=== PATIENT | male | born 1950 | race Caucasian/White ===

== ENCOUNTER 2017-03-30 02:09 | Inpatient (IN) ==
[2017-03-30 02:38] LABS: Basophils # 0.1 K/mcL (0.0-0.2); Basophils % 0.4 %; Eosinophils % 0.1 %; Hemoglobin 21.4 g/dL (12.9-16.9); Immature Granulocytes % 1.3 % (0-4); Lymphocytes # 0.8 K/mcL (0.6-4.6); Lymphocytes % 5.2 %; Mean Corpuscular HGB Conc 34.1 g/dL (31.6-35.5); Mean Corpuscular Hemoglobin 31.2 pg (28.0-33.3); Mean Corpuscular Volume 91.7 fL (83.0-100.0); Monocytes # 1.2 K/mcL (0.0-1.3); Monocytes % 7.6 %; Neutrophils # 13.8 K/mcL (1.6-8.9); Platelet Count 170 K/mcL (140-400); Red Blood Count 6.85 M/mcL (4.19-5.50); Segmented Neutrophils % 85.4 %
[2017-03-30 02:39] LABS: Hematocrit 62.8 % (37.5-50.1)
[2017-03-30 03:01] LABS: Calcium 9.1 mg/dL (8.6-10.3); Potassium 4.2 mEq/L (3.5-5.1)
[2017-03-30] MEDS ORDERED: 0.9 % Sodium Chloride 1,000 ML IVC ONE ×2 (03:03→05:07)
[2017-03-30 03:44] LABS: Prothrombin Time 11.2 Seconds (9.4-12.1)
[2017-03-30 03:47] LABS: Activated Partial Thrombo Time 22.7 Seconds (26.0-36.0)
[2017-03-30 04:38] LABS: Bilirubin,Urine Negative (Negative); Blood,Urine Negative (Negative); Clarity,Urine Clear (Clear); Color,Urine Yellow (Yellow); Glucose,Urine (UA) Normal (Normal); Ketones,Urine Negative (Negative); Leukocyte Esterase,Urine Negative (Negative); Nitrite,Urine Negative (Negative); Protein,Urine 30 mg/dL (Neg-Trace); Specific Gravity,Urine > 1.030 (1.010-1.025); Urobilinogen,Urine Normal (Normal)
[2017-03-30 04:41] LABS: RBC,Urine 0-3 per hpf (0-3); Squamous Epithelial Cell,Urine Many per lpf (None-Few); WBC,Urine 0-3 per hpf (0-3)
[2017-03-30 04:59] LABS: Bacteria,Urine Few per hpf (None-Few); Hyaline Casts,Urine Few per lpf (None-Few)
[2017-03-30] MEDS ORDERED: MetroNIDAZOLE 500 MG/100 ML 500 MG/100 ML BAG IVPB ONE (05:07)
--- NOTE | 2017-03-30 05:16 | Emergency Department Note ---
Disposition Clinical Impression: Colitis, Dehydration, Elevated troponin, Elevated lactic acid level Disposition: Admitted As Inpatient General Adult HPI - General Chief complaint: ED General Medical Stated complaint: Sweating Time Seen by Provider: 03/30/17 02:19 Source: patient, EMS Limitations: no limitations Nursing Notes Reviewed: Yes Vital Signs Reviewed: Yes - History of Present Illness HPI Narrative: Patient presents to the emergency department for evaluation of decreased mental status, back pain, diaphoresis. Patient brought in by EMS and is only able to give limited history secondary to slow speech and confusion. Complains of diaphoresis and had soaked through his shirt. Complains of low back pain. At this point in the setting of back pain abdominal discomfort diaphoresis and confusion the patient will undergo CTA evaluation for possible dissection. Patient will be taken to CT prior to having his kidney function back. Patient will also undergo evaluation for possible cardiac as well as abdominal causes of symptoms. Patient will receive a head CT secondary to confusion. Awaiting family. Pain Scale: 6 - Related Data Home Medications Medication Instructions Recorded Confirmed Aspirin Enteric Coated [Aspirin EC] 81 mg PO QPM 11/21/14 03/30/17 Levothyroxine [Synthroid] 50 mcg PO QAM 11/21/14 03/30/17 Metoprolol XL (24 HR) Succ [Toprol 50 mg PO QAM 11/21/14 03/30/17 XL] Oxycodone HCl/Acetaminophen 1 tab PO Q6H PRN 11/21/14 03/30/17 [Percocet 7.5-325 mg Tablet] Atorvastatin Calcium [Lipitor] 20 mg PO DAILY 03/30/17 03/30/17 Duloxetine HCl [Cymbalta] 60 mg PO DAILY 03/30/17 03/30/17 Losartan Potassium [Cozaar] 100 mg PO DAILY 03/30/17 03/30/17 amLODIPine [Norvasc] 5 mg PO DAILY 03/30/17 03/30/17 Allergies Allergy/AdvReac Type Severity Reaction Status Date / Time No Known Allergies Allergy Verified 03/30/17 02:14 All systems ED: reviewed and negative except as stated. Constitutional: Reports: other (Diaphoresis) Gastrointestinal: Reports: abdominal pain Musculoskeletal: Reports: back pain Integumentary: Denies: rash, abrasion Past Medical History - Past Medical History Medical history: Reports: arthritis, hyperlipidemia, hypertension, renal disease , thyroid disease Surgical history: Reports: cataract, orthopedic, other, vasectomy Psychiatric history: Reports: no psych history - Social History Smoking Status: Former smoker Smokeless Tobacco Status: No Alcohol use: Reports: none Drug use: Reports: none Physical Exam General: Well appearing, nontoxic, no acute distress Head: Normocephalic Atraumatic Eyes: PERRL, EOMI ENT: Airway patent, no stridor Neck: supple, no meningismus Chest: Lungs clear to auscultation bilateral Cardiac: Regular rate and rhythm, no murmurs, rubs or gallops Abdomen: soft, nontender, nondistended; no guarding, rebound, or tenderness to percussion Musculoskeletal: Calves symmetric, nontender, no palpable cord Skin: No rash, normal skin tone Neuro: Alert and Oriented to person, No focal deficit, CN 2-12 symmetric and intact; finger-nose and [id number] intact bilaterally. Upper and lower extremity strength and sensation intact. - General Limitations: no limitations General appearance: alert Course - Reevaluation(s) Reevaluation #1: CT scan concerning for colitis area this fits dehydration. Upon further evaluation with family at bedside the patient symptoms started with vomiting and diarrhea earlier today. Patient's confusion worsened throughout the day. His confusion that concerned them to bring him in. states that he has had episodes of confusion diaphoresis and low blood pressure in the past that have required admission as well as transfer to [facility] and have not found a specific cause. This does sound more similar to the nonspecific symptoms we have found today. Patient will be admitted for further evaluation and treated for possible colitis. - Consultations Consultation #1: Discussed with Dr. Chen. Patient accepted for admission. Vital Signs Temperature 98.6 F 03/30/17 02:17 Pulse Rate 78 03/30/17 02:17 Respiratory Rate 16 03/30/17 02:17 Blood Pressure 135/87 03/30/17 02:17 O2 Sat by Pulse Oximetry 93 03/30/17 02:17 Temperature 97.8 F 03/30/17 19:09 Pulse Rate 116 03/30/17 19:09 Respiratory Rate 20 03/30/17 19:09 Blood Pressure 72/52 03/30/17 19:09 O2 Sat by Pulse Oximetry 95 03/30/17 19:09 Oxygen Delivery Oxygen Delivery Nasal Cannula Medical Decision Making - Lab Data Result diagrams: 03/30/17 21:14 03/30/17 08:23 Lab Results 03/30/17 03/30/17 03/30/17 Range/Units 02:29 02:31 02:31 WBC 16.1 H (4.3-11.1) K/mcL RBC 6.85 H (4.19-5.50) M/mcL Hgb 21.4 H (12.9-16.9) g/dL Hct 62.8 H (37.5-50.1) % MCV 91.7 (83.0-100.0) fL MCH 31.2 (28.0-33.3) pg MCHC 34.1 (31.6-35.5) g/dL RDW 15.0 H (11.5-14.5) % Plt Count 170 (140-400) K/mcL MPV 10.0 (9.4-12.4) fL Immature Gran % 1.3 (0-4) % Seg Neutrophils % 85.4 % Lymphocytes % 5.2 % Monocytes % 7.6 % Eosinophils % 0.1 % Basophils % 0.4 % Neutrophils # 13.8 H (1.6-8.9) K/mcL Lymphocytes # 0.8 (0.6-4.6) K/mcL Monocytes # 1.2 (0.0-1.3) K/mcL Eosinophils # 0.0 (0.0-0.6) K/mcL Basophils # 0.1 (0.0-0.2) K/mcL PT (9.4-12.1) Seconds INR APTT (26.0-36.0) Seconds Sodium 133 L (136-145) mEq/L Potassium 4.2 (3.5-5.1) mEq/L Chloride 100 (98-107) mEq/L Carbon Dioxide 24 (23-29) mEq/L BUN 44 H (8-23) mg/dL Creatinine 1.79 H (0.70-1.30) mg/dL Est GFR ( Amer) 46 L (> 60) Est GFR (Non-Af Amer) 38 L (> 60) BUN/Creatinine Ratio 25 (6-26) Glucose 186 H (70-105) mg/dL POC Glucose 169 H (58-89) Calculated Osmolality 292 (280-300) Lactic Acid (0.5-2.2) mmol/L Calcium 9.1 (8.6-10.3) mg/dL Troponin I (< 0.04) ng/mL Urine Color (Yellow) Urine Clarity (Clear) Urine pH (5.0-8.0) pH Units Ur Specific Carter (1.010-1.025) Urine Protein (Neg-Trace) mg/dL Urine Glucose (UA) (Normal) mg/dL Urine Ketones (Negative) mg/dL Urine Blood (Negative) Urine Nitrite (Negative) Urine Bilirubin (Negative) Urine Urobilinogen (Normal) mg/dL Ur Leukocyte Esterase (Negative) Urine Microscopic RBC (0-3) per hpf Urine Microscopic WBC (0-3) per hpf Ur Squamous Epith Cells (None-Few) per lpf Urine Bacteria (None-Few) per hpf Hyaline Casts (None-Few) per lpf Ur Culture Indicated? (NO) 03/30/17 03/30/17 03/30/17 Range/Units 02:31 03:12 03:12 WBC (4.3-11.1) K/mcL RBC (4.19-5.50) M/mcL Hgb (12.9-16.9) g/dL Hct (37.5-50.1) % MCV (83.0-100.0) fL MCH (28.0-33.3) pg MCHC (31.6-35.5) g/dL RDW (11.5-14.5) % Plt Count (140-400) K/mcL MPV (9.4-12.4) fL Immature Gran % (0-4) % Seg Neutrophils % % Lymphocytes % % Monocytes % % Eosinophils % % Basophils % % Neutrophils # (1.6-8.9) K/mcL Lymphocytes # (0.6-4.6) K/mcL Monocytes # (0.0-1.3) K/mcL Eosinophils # (0.0-0.6) K/mcL Basophils # (0.0-0.2) K/mcL PT 11.2 (9.4-12.1) Seconds INR 1.0 APTT 22.7 L (26.0-36.0) Seconds Sodium (136-145) mEq/L Potassium (3.5-5.1) mEq/L Chloride (98-107) mEq/L Carbon Dioxide (23-29) mEq/L BUN (8-23) mg/dL Creatinine (0.70-1.30) mg/dL Est GFR ( Amer) (> 60) Est GFR (Non-Af Amer) (> 60) BUN/Creatinine Ratio (6-26) Glucose (70-105) mg/dL POC Glucose (58-89) Calculated Osmolality (280-300) Lactic Acid 2.5 H (0.5-2.2) mmol/L Calcium (8.6-10.3) mg/dL Troponin I 0.07 H* (< 0.04) ng/mL Urine Color (Yellow) Urine Clarity (Clear) Urine pH (5.0-8.0) pH Units Ur Specific Carter (1.010-1.025) Urine Protein (Neg-Trace) mg/dL Urine Glucose (UA) (Normal) mg/dL Urine Ketones (Negative) mg/dL Urine Blood (Negative) Urine Nitrite (Negative) Urine Bilirubin (Negative) Urine Urobilinogen (Normal) mg/dL Ur Leukocyte Esterase (Negative) Urine Microscopic RBC (0-3) per hpf Urine Microscopic WBC (0-3) per hpf Ur Squamous Epith Cells (None-Few) per lpf Urine Bacteria (None-Few) per hpf Hyaline Casts (None-Few) per lpf Ur Culture Indicated? (NO) 03/30/17 Range/Units 04:15 WBC (4.3-11.1) K/mcL RBC (4.19-5.50) M/mcL Hgb (12.9-16.9) g/dL Hct (37.5-50.1) % MCV (83.0-100.0) fL MCH (28.0-33.3) pg MCHC (31.6-35.5) g/dL RDW (11.5-14.5) % Plt Count (140-400) K/mcL MPV (9.4-12.4) fL Immature Gran % (0-4) % Seg Neutrophils % % Lymphocytes % % Monocytes % % Eosinophils % % Basophils % % Neutrophils # (1.6-8.9) K/mcL Lymphocytes # (0.6-4.6) K/mcL Monocytes # (0.0-1.3) K/mcL Eosinophils # (0.0-0.6) K/mcL Basophils # (0.0-0.2) K/mcL PT (9.4-12.1) Seconds INR APTT (26.0-36.0) Seconds Sodium (136-145) mEq/L Potassium (3.5-5.1) mEq/L Chloride (98-107) mEq/L Carbon Dioxide (23-29) mEq/L BUN (8-23) mg/dL Creatinine (0.70-1.30) mg/dL Est GFR ( Amer) (> 60) Est GFR (Non-Af Amer) (> 60) BUN/Creatinine Ratio (6-26) Glucose (70-105) mg/dL POC Glucose (58-89) Calculated Osmolality (280-300) Lactic Acid (0.5-2.2) mmol/L Calcium (8.6-10.3) mg/dL Troponin I (< 0.04) ng/mL Urine Color Yellow (Yellow) Urine Clarity Clear (Clear) Urine pH 6.0 (5.0-8.0) pH Units Ur Specific Carter > 1.030 H (1.010-1.025) Urine Protein 30 H (Neg-Trace) mg/dL Urine Glucose (UA) Normal (Normal) mg/dL Urine Ketones Negative (Negative) mg/dL Urine Blood Negative (Negative) Urine Nitrite Negative (Negative) Urine Bilirubin Negative (Negative) Urine Urobilinogen Normal (Normal) mg/dL Ur Leukocyte Esterase Negative (Negative) Urine Microscopic RBC 0-3 (0-3) per hpf Urine Microscopic WBC 0-3 (0-3) per hpf Ur Squamous Epith Cells Many H (None-Few) per lpf Urine Bacteria Few (None-Few) per hpf Hyaline Casts Few (None-Few) per lpf Ur Culture Indicated? NO (NO) Attestation Statement - Attestation Attestation: I examined this patient and my medical decision-making was reviewed with the Resident Physician, Dr. Plasencia. I agree with the documented findings, disposition and treatment plan as described except to the extent set forth below. Pt is a 67 yo wm, brought to us with AMS, and c/o low back pain and diaphoresis. Pt arrived y EMS, no family for additional hx on arrival. Pt awake and able to answer questions, just very delayed with his responses and appears uncomfortable. Limited history on arrival. VSS. Concerned on arrival considering pt's acute sxs, for possible vascular event. Accucheck wnl. Pt with PIV est, labs sent, and sent for urgent CTA aorta and CT brain imaging. I agree with pt's PE findings as documented. VSS. EKG NSR with no acute ischemia. Labs show acute on chronic KI, elev trop (possible due to renal issues), and elev lactate. Pt with no acute vascular issue on cT scanning, CT abd/pelvis shows colitis. arrived later in ED course, and reports that pt has been ill with N/.V/D, and developed grad worsening dehydration and confusion. states pt with similar presentation in the past related to dehydration. Will continue IV fluid hydration, repeat lactate, IV antibx for colitis and admission. CT brain wnl. No focal deficits,a nd slow improvement clincially after IV hydration. D/W hsopitalist.
[2017-03-30] MEDS ORDERED: *HR* HYDROmorphone (PF) 1 MG/ML SYRINGE IVP ONE (05:38)
[2017-03-30] MEDS ORDERED: Ondansetron 4 MG/2 ML VIAL IVP ONE (05:38)
[2017-03-30] MEDS ORDERED: Acetaminophen 325 MG TABLET PO PRN (07:44)
[2017-03-30] MEDS ORDERED: Naloxone 0.4 MG/ML INJ IVP PRN (07:44)
[2017-03-30] MEDS ORDERED: *HR* Morphine 2 MG/ML SYRINGE IVP PRN (07:44)
[2017-03-30] MEDS ORDERED: *HR* OxyCODONE Immed Rel 5 MG TABLET PO PRN (07:44)
[2017-03-30] MEDS ORDERED: *HR* Promethazine 25 MG/ML VIAL IVP PRN (07:44)
[2017-03-30] MEDS ORDERED: 0.9 % Sodium Chloride 1,000 ML IVC SCH (07:45)
[2017-03-30] MEDS ORDERED: MetroNIDAZOLE 500 MG/100 ML 500 MG/100 ML BAG IVPB SCH ×2 (08:00→14:00)
--- NOTE | 2017-03-30 08:12 | Internal Med History&Physical ---
Date of Encounter: 03/30/17 Time of Encounter: 08:06 Assessment and Plan (1) Sepsis Current visit: Yes Status: Acute Will admit the pt into Tele he does meet sepsis criteria with elevated LA, WBC and source of inf as Colitis will cont IV hydration NS @ 125 trend on WBC and LA f/u on Blood cx, Stool cx, Urine Cx Started him on empirical abx Levaquin + Flagyl Qualifiers: Qualified Code(s): A41.9 - Sepsis, unspecified organism (2) Colitis Current visit: Yes Status: Acute Mostly infectious - porobably bacterial need to r/o C. Diff sent for stool studies on empirical abx symptomatic and supportive care PPI (3) CKD (chronic kidney disease) stage 3, GFR 30-59 ml/min Current visit: Yes Status: Acute Stable Cr so far since he received IV contrast.. need close monitoring of Cr IV hydration (4) Cystitis Current visit: Yes Status: Acute (5) Acute delirium Current visit: Yes Status: Acute Mostly due to Sepsis / Toxic encephalopathy cont close monitoring CT of Head - negative (6) Toxic encephalopathy Current visit: Yes Status: Acute (7) Dehydration Current visit: Yes Status: Acute (8) Elevated troponin Current visit: Yes Status: Acute Moslty demand ischemia + CKD Reviewed EKG -showed NSR , VR @ 75, no acute ischemic changes will trend on Trop (9) Hyperlipidemia Current visit: No Status: Chronic Qualifiers: Hyperlipidemia type: unspecified Qualified Code(s): E78.5 - Hyperlipidemia , unspecified (10) Hypertension Current visit: No Status: Chronic resumed home meds Qualifiers: Hypertension type: essential hypertension Qualified Code(s): I10 - Essential (primary) hypertension (11) Hypothyroidism Current visit: No Status: Chronic resumed home meds Qualifiers: Hypothyroidism type: unspecified Qualified Code(s): E03.9 - Hypothyroidism , unspecified Internal Medicine - H&P: HPI Chief complaint: Abd pain .Diarrhea Admitted From: Emergency Dept Plans for Post Hospital Care: Home History of present illness: Mr. Pratt is a 67 year old male with known PMH of CKD-3, DJD, HLD, HTN and Hypothyoidism pt presented to ER vp emerging media with geberalized body pain, low back pain, abdominal pain associated with nausea / vomiting and diarrhea. According to pt's he called her y/d evening at 4 PM c/o he is feeling sick , had diarrhea and vomiting at work. After coming to ER he had further work up done including CTA of Chest - no disection, CT of Abd showed wich showed colitis and cystitis. He does look confused now, he is not able to give me complete history what happened y/d, however he is alert, awake and O x 3. Denied any CP / SOB. Past Med Surg Social Fam HX - Past Medical History Medical history: arthritis, hyperlipidemia, hypertension, renal disease, thyroid disease Psychiatric history: no psych history - Past Surgical History Surgical History: cataract, orthopedic, other, vasectomy - Social History Smoking Status: Former smoker (quit 45 yrs ago) Smokeless Tobacco Status: No Alcohol use: none Drug use: none - Family History Brother Hx Family Cardiac Disorders: Yes (Brother had A. fib and hypertension) Maternal Hx Family Neurologic Disorders: Yes (CVA) Internal Medicine - H&P: Meds Aspirin Enteric Coated [Aspirin EC] 81 mg PO QPM 11/21/14 [History] Levothyroxine [Synthroid] 50 mcg PO QAM 11/21/14 [History] Metoprolol XL (24 HR) Succ [Toprol XL] 50 mg PO QAM 11/21/14 [History] Oxycodone HCl/Acetaminophen [Percocet 7.5-325 mg Tablet] 1 tab PO Q6H PRN [History] Atorvastatin Calcium [Lipitor] 20 mg PO DAILY 03/30/17 [History] Duloxetine HCl [Cymbalta] 60 mg PO DAILY 03/30/17 [History] Losartan Potassium [Cozaar] 100 mg PO DAILY 03/30/17 [History] amLODIPine [Norvasc] 5 mg PO DAILY 03/30/17 [History] 3 Allergy/AdvReac Type Severity Reaction Status Date / Time No Known Allergies Allergy Verified 03/30/17 02:14 All Systems PM: A 10-system review of systems was performed and is negative for pertinent findings except as documented above in the HPI. Review of systems: All systems reviewed everything is benign except the systems and symptoms I mentioned in HPI - Constitutional Vitals: Temp Pulse Resp BP Pulse Ox 98.6 F 78 16 133/77 93 03/30/17 02:17 03/30/17 05:52 03/30/17 05:52 03/30/17 05:52 03/30/17 05:52 General appearance: Present: A&O X 3, pleasant, no acute distress, obese. Absent: answers questions appropriately - Head Head exam: Present: atraumatic, normal inspection - Neck Neck exam general surgery: Present: supple - Respiratory Respiratory exam: Present: decreased breath sounds. Absent: rales, respiratory distress, rhonchi, wheezes - Cardiovascular Cardiovascular exam: Present: RRR, +S1, +S2. Absent: tachycardia - GI/Abdominal GI/Abdominal exam: Present: distended, normal bowel sounds, soft. Absent: rebound, rigid, tenderness - Extremities Exam Extremities exam: Absent: calf tenderness, pedal edema, tenderness - Back Exam Back exam: Absent: CVA tenderness (L), CVA tenderness (R) - Neurological Exam Neurological exam: Present: alert, oriented X3 - Psychiatric Psychiatric exam: Present: normal affect, normal mood - Skin Skin exam: Absent: rash Internal Med - H&P Results - Labs CBC & Chem 7: 03/30/17 02:31 03/30/17 02:31
[2017-03-30 08:31] LABS: Basophils # 0.1 K/mcL (0.0-0.2); Basophils % 0.3 %; Hemoglobin 20.9 g/dL (12.9-16.9); Immature Granulocytes % 1.2 % (0-4); Immature Platelets 3.3 % (1.1-6.1); Lymphocytes # 0.8 K/mcL (0.6-4.6); Lymphocytes % 4.5 %; Mean Corpuscular HGB Conc 34.3 g/dL (31.6-35.5); Mean Corpuscular Hemoglobin 30.9 pg (28.0-33.3); Mean Platelet Volume 9.7 fL (9.4-12.4); Monocytes # 1.2 K/mcL (0.0-1.3); Monocytes % 6.5 %; Neutrophils # 15.4 K/mcL (1.6-8.9); Platelet Count 130 K/mcL (140-400); Red Blood Count 6.77 M/mcL (4.19-5.50); Segmented Neutrophils % 87.5 %
[2017-03-30 08:32] LABS: Hematocrit 60.9 % (37.5-50.1)
[2017-03-30 08:45] LABS: Albumin 3.1 g/dL (3.5-5.7); Albumin/Globulin Ratio 1.2 (1.1-2.2); Bilirubin,Total 0.4 mg/dL (0.3-1.0); Calcium 8.4 mg/dL (8.6-10.3); Globulin 2.5 g/dL (2.4-3.5); Magnesium 1.9 mg/dL (1.6-2.6); Phosphorous 4.2 mg/dL (2.7-4.5); Potassium 4.2 mEq/L (3.5-5.1); Total Protein 5.6 g/dL (6.4-8.9)
[2017-03-30] MEDS ORDERED: amLODIPine 5 MG TABLET PO SCH (09:00)
[2017-03-30] MEDS ORDERED: Metoprolol XL (24 HR) Succ 50 MG TAB.ER.24H PO SCH (09:00)
--- NOTE | 2017-03-30 12:37 | Electrocardiograph Report ---
[place] [id number] Test Date: 2017-03-30 Pat Name: Alberto Pratt Department: 104 Room: 2N04 Gender: M Ecmo Specialist: : [id number] Requested By: Elvis Plasencia Order Number: [id number] Reading MD: Hamilton Leggett MD Measurements Intervals [place] Rate: 75 P: 77 OR: 153 QRS: 99 QRSD: 79 T: 84 QT: 374 QTc: 402 Interpretive Statements SINUS RHYTHM BORDERLINE RIGHT AXIS DEVIATION Electronically Signed On 03-30-2017 12:35:53 EST by Hamilton Leggett MD
[2017-03-30] MEDS: Ondansetron 4 MG/2 ML VIAL IVP PRN ×2 (12:59→20:02)
[2017-03-30] MEDS ORDERED: *HR* OxyCODONE/APAP 7.5/325 TABLET PO PRN (15:52)
--- NOTE | 2017-03-30 15:56 | Cardiology Consult Note ---
Date of Encounter: 03/30/17 Time of Encounter: 15:53 Assessment and Plan (1) Elevated troponin Current Visit: Yes Status: Acute has had multiple previous similiar episodes, LHC in 2013 unremarkable with mild Non Obstructive CAD. In setting of sepsis likely demand ischemia however will continue to trend Tom and follow. No indication for LHC now. Discussion w patient/family: The assessment and plan as outlined above was discussed with the patient and/or family members who expressed understanding and agreement. All questions were answered. Thank you for involving us in the care of your patient. Please call with any questions. History of Present Illness Consult date: 03/30/17 Consult reason: Abnormal labs Chief complaint: belly pain and nausea History of present illness: Mr. Pratt is a 67 year old male with known mild non obstructive CAD presents with abdominal pain found to have colitis in the setting of sepsis. Patient denies any chest pain or SOB. Currently is on the commode straining with nausea. Mild elevated tropnins likely demand ischemia however we do recommend continued serial Tom. Patient according to has had many LHC's when he has similiar presentation. Past Med Surg Social Fam HX - Past Medical History Medical history: arthritis, hyperlipidemia, hypertension, renal disease, thyroid disease Psychiatric history: no psych history - Past Surgical History Surgical History: cataract, orthopedic, other, vasectomy - Social History Smoking Status: Former smoker (quit 45 yrs ago) Smokeless Tobacco Status: No Alcohol use: none Drug use: none - Family History Maternal Hx Family Neurologic Disorders: Yes (CVA) Brother Hx Family Cardiac Disorders: Yes (Brother had A. fib and hypertension) Medications and Allergies Aspirin Enteric Coated [Aspirin EC] 81 mg PO QPM 11/21/14 [History] Levothyroxine [Synthroid] 50 mcg PO QAM 11/21/14 [History] Metoprolol XL (24 HR) Succ [Toprol XL] 50 mg PO QAM 11/21/14 [History] Oxycodone HCl/Acetaminophen [Percocet 7.5-325 mg Tablet] 1 tab PO Q6H PRN [History] Atorvastatin Calcium [Lipitor] 20 mg PO DAILY 03/30/17 [History] Duloxetine HCl [Cymbalta] 60 mg PO DAILY 03/30/17 [History] Losartan Potassium [Cozaar] 100 mg PO DAILY 03/30/17 [History] amLODIPine [Norvasc] 5 mg PO DAILY 03/30/17 [History] 3 Allergy/AdvReac Type Severity Reaction Status Date / Time No Known Allergies Allergy Verified 03/30/17 02:14 All Systems Review: A 10-system review of systems was performed and is negative for pertinent findings except as documented above in the HPI. Physical Examination Vital Signs, Last 4 Hours Temp Pulse Resp BP Pulse Ox 03/30/17 15:30 97.2 F L 105 24 140/107 97 General: Conversant, No Apparent Distress HEENT: Atraumatic, Normocephaly, Mucus Membranes Moist Neck: No JVD, Normal carotid pulses Cardiac: Reg Rate and Rhythm, Normal S1 and S2, No Murmur Lungs: Normal Breath Sounds, No Wheeze, Rales, Rhonchi Neuro: Alert and responsive, No focal deficits noted Abdomen: Soft, Non-Tender Skin: No rashes noted on visualized skin Musculoskeletal: No Chest Wall Tenderness Extremities: No Clubbing, No Cyanosis, No Edema, Normal Pulses Results 03/30/17 08:23 03/30/17 08:23 Lab Results 03/30/17 03/30/17 03/30/17 08:23 08:23 08:23 WBC 17.6 H Hgb 20.9 H Hct 60.9 H Plt Count 130 L Sodium 132 L Potassium 4.2 Chloride 106 Carbon Dioxide 17 L BUN 46 H Creatinine 1.61 H Glucose 164 H Calcium 8.4 L Magnesium 1.9 Total Bilirubin 0.4 AST 28 ALT 13 Alkaline Phosphatase 43 Troponin I B-Natriuretic Peptide 247 H 03/30/17 03/30/17 08:23 13:55 WBC Hgb Hct Plt Count Sodium Potassium Chloride Carbon Dioxide BUN Creatinine Glucose Calcium Magnesium Total Bilirubin AST ALT Alkaline Phosphatase Troponin I 0.08 H* 0.42 H* B-Natriuretic Peptide Consult Discharge Plan - Plan Referrals: Harmeet Hong DO [Primary Care Provider] - 04/05/17 11:40 am (PLEASE TAKE PHOTO ID, INSURANCE CARDS AND ANY CO PAYS IF YOU HAVE ONE)
[2017-03-30] MEDS ORDERED: Aspirin Enteric Coated 81 MG Tablet PO SCH (18:00)
[2017-03-30 19:19] VITALS: BP 72/52
[2017-03-30 19:20] LABS: Adenovirus F 40/41 PCR Not detected (Not detect); Astrovirus PCR Not detected (Not detect); C.difficile Toxin A/B by PCR Not detected (Not detect); Campylobacter by PCR Not detected (Not detect); Cryptosporidium by PCR Not detected (Not detect); Cyclospora cayetanensis PCR Not detected (Not detect); E. coli O157 by PCR Not detected (Not detect); Entamoeba histolytica PCR Not detected (Not detect); Enteroaggregative E.coli(EAEC) Not detected (Not detect); Enteropathogenic E.coli(EPEC) Not detected (Not detect); Enterotoxigenic E.coli (ETEC) Not detected (Not detect); Giardia lamblia PCR Not detected (Not detect); Norovirus GI/GII PCR Not detected (Not detect); Plesiomonas shigelloides PCR Not detected (Not detect); Rotavirus A PCR Not detected (Not detect); Salmonella PCR Not detected (Not detect); Sapovirus PCR Not detected (Not detect); Shig/EnteroinvasiveE coli EIEC Not detected (Not detect); Shigalike tox-prod E coli STEC Not detected (Not detect); Vibrio PCR Not detected (Not detect); Vibrio cholerae PCR Not detected (Not detect); Yersinia enterocolitica PCR Not detected (Not detect)
[2017-03-30] MEDS ORDERED: *HR* Heparin 5,000 UNIT/ML VIAL IVP ONE (20:33)
[2017-03-30] MEDS ORDERED: *HR* Heparin 5,000 UNIT/ML VIAL IVP PRN ×2 (20:33)
[2017-03-30] MEDS ORDERED: Aspirin 325 MG TABLET PO ONE (20:33)
[2017-03-30] MEDS ORDERED: *HR* Metoprolol 5 MG/5 ML VIAL IVP PRN (20:35)
[2017-03-30] MEDS ORDERED: Heparin 25,000 UNIT/500 ML D5W 25,000 UNIT/500 ML BAG IVC SCH (20:45)
[2017-03-30] MEDS ORDERED: Norepinephrine 4 MG in D5% in Water 250 ML IVC SCH (21:15)
[2017-03-30 21:27] LABS: Mean Corpuscular Hemoglobin 31.7 pg (28.0-33.3)
[2017-03-30 21:29] LABS: Hemoglobin 21.1 g/dL (12.9-16.9); Immature Platelets 6.3 % (1.1-6.1); Mean Corpuscular HGB Conc 32.1 g/dL (31.6-35.5); Mean Corpuscular Volume 98.9 fL (83.0-100.0); Mean Platelet Volume 10.8 fL (9.4-12.4); Red Blood Count 6.65 M/mcL (4.19-5.50); Red Cell Distribution Width 15.9 % (11.5-14.5)
[2017-03-30 21:38] LABS: Hematocrit 65.8 % (37.5-50.1)
[2017-03-30] MEDS ORDERED: *HR* Midazolam HCl 5 MG/5 ML VIAL IVP ONE (21:38)
[2017-03-30] MEDS ORDERED: *HR* EPINEPHrine 1 MG/10 ML SYRINGE IVP ONE (21:38)
--- NOTE | 2017-03-30 22:01 | Death Note ---
Discharge Sum: Summary - Date and Time Date of admission: 03/30/17 07:44 Date of : 03/30/17 Time of : 21:39 - Summary Details: Patient is a 67y/o male with PMH of CKD stage 3, HLD, DJD, HTN, hypothyroidism who was admitted for sepsis secondary to colitis, and elevated TNI. He was started on broad spectrum antibiotics, IV fluids, and cardiology was consulted for evaluation of elevated TNI. As per cardio given underlying sepsis, close monitoring of TNI was recommended rather than any acute intervention, as the patient denied any chest pain or discomfort. Later today I received a notification about worsening of patient's TNI, third TNI reported to be 1.41, pt was also noted to be hypertensive and repeat BP was requested. Heparin gtt was ordered and as I was waiting for the patient's manual BP to be obtained, pt was found unresponsive and pulseless. Code Blue was called and ACLS protocol was initiated. Pt was intubated. During the ACLS protocol, pt was reported to have a repeat LA of 8.6. ROSC was obtained after undergoing 6 cycle of ACLS (administration of 6 epi, 2 bicarb, and 1 calcium) Pt was started on IV Norepi, BP was obtained 15 minutes after the ROSC, patient became pulseless again and ACLS was restarted. Pt underwent 6 cycles of ACLS (administration of 6 epi, 1 bicarb, and 1 calcium) IV fluids were continued through the complete duration of the ACLS protocol No ROSC was obtained. Pt was pronounced at 2139. Family on their way to the hospital and will be notified. - Additional Data Confirmation of as documented by pronouncing clinician: no pulse Family: contacted Attending/PCP notified?: Yes Attending physician: Jose Solares MD Was code activated?: Yes Discharge Sum: Diag - PCOD Probable Cause of : Cardiac arrest Discharge Sum: Prov - Provider Primary care physician: Harmeet Hong DO Consults: 03/30/17 14:26 Consult to Cardiology [CONS] Routine Comment: Consulting Provider: Cardiology Bryan Reason for Consult: Acute NSTEMI Call Completed: Yes Pronouncing clinician: Silvana Chen
[2017-03-31] MEDS ORDERED: Levofloxacin 750 MG/150 ML 750 MG/150 ML BAG IVPB SCH (08:00)
--- NOTE | 2017-03-31 16:22 | Discharge Summary ---
Date of Encounter: 03/31/17 Time of Encounter: 15:51 - Discharge Diagnosis (1) Sepsis Priority: Primary Status: Acute Qualifiers: Qualified Code(s): A41.9 - Sepsis, unspecified organism (2) Colitis Priority: Primary Status: Acute (3) CKD (chronic kidney disease) stage 3, GFR 30-59 ml/min Priority: Primary Status: Acute (4) Cystitis Priority: Primary Status: Acute (5) Acute delirium Priority: Primary Status: Acute (6) Toxic encephalopathy Priority: Primary Status: Acute (7) NSTEMI (non-ST elevated myocardial infarction) Priority: Primary Status: Acute (8) Dehydration Priority: Primary Status: Acute (9) Hyperlipidemia Priority: Secondary Status: Chronic Qualifiers: Hyperlipidemia type: unspecified Qualified Code(s): E78.5 - Hyperlipidemia , unspecified (10) Hypertension Priority: Secondary Status: Chronic Qualifiers: Hypertension type: essential hypertension Qualified Code(s): I10 - Essential (primary) hypertension (11) Hypothyroidism Priority: Secondary Status: Chronic Qualifiers: Hypothyroidism type: unspecified Qualified Code(s): E03.9 - Hypothyroidism , unspecified - Discharge Medications Home Medications: Aspirin Enteric Coated [Aspirin EC] 81 mg PO QPM 11/21/14 [History] Levothyroxine [Synthroid] 50 mcg PO QAM 11/21/14 [History] Metoprolol XL (24 HR) Succ [Toprol XL] 50 mg PO QAM 11/21/14 [History] Oxycodone HCl/Acetaminophen [Percocet 7.5-325 mg Tablet] 1 tab PO Q6H PRN [History] Atorvastatin Calcium [Lipitor] 20 mg PO DAILY 03/30/17 [History] Duloxetine HCl [Cymbalta] 60 mg PO DAILY 03/30/17 [History] Losartan Potassium [Cozaar] 100 mg PO DAILY 03/30/17 [History] amLODIPine [Norvasc] 5 mg PO DAILY 03/30/17 [History] Allergies/Adverse Reactions: 3 Allergy/AdvReac Type Severity Reaction Status Date / Time No Known Allergies Allergy Verified 03/30/17 02:14 Procedures/tests Complete & Pending: Procedures Performed prior 72 hours Category Date Time Status EKG [ECG 12 lead ECG] [ECG] Stat Y 03/30/17 14:26 Ordered Date of admission: 03/30/17 07:44 Primary care physician: Harmeet Hong DO Consults: 03/30/17 14:26 Consult to Cardiology [CONS] Routine Comment: Consulting Provider: Chantal Angel Reason for Consult: Acute NSTEMI Call Completed: Yes - Patient Status Disposition: - Discharge Instructions Follow Up With: Harmeet Hong DO [Primary Care Provider] - 04/05/17 11:40 am (PLEASE TAKE PHOTO ID, INSURANCE CARDS AND ANY CO PAYS IF YOU HAVE ONE) Hospital course: Mr. 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 According to pt's he called her y/d evening at 4 PM c/o he was feeling sick, had diarrhea and vomiting at work. After coming to ER he had further work up done including CTA of Chest - no dissection, CT of Abd showed diffuse colitis and cystitis. He denied any melena / hematemesis. He denied any CP / SOB. He did look confused and he was not able to give me complete history what happened y/d, however he was alert, awake and O x 3. All the above information was given by who is at bed side. He was admitted in the hospital with sepsis mostly due to diffuse colitis - possibly bacterial vs ischemic. He was started on aggressive IV hydration and empirical abx Flagyl and Levaquin. He did have slightly elevated troponin with no acute ischemic EKG changes. So he was placed on Tele and trended on cardiac enzymes. His 3rd troponin went upto 0.4, but he denied any CP, and no significant EKG changes noticed. I did consulted [employer] [facility] who had seen the pt right away and talked to Pt and his at bed side. Cardiology thought his elevated troponin mostly demand ischemic with sepsis and colitis. Recommend to continue close monitoring. He also had slightly elevated lactic acid at 2.5 then it got improved 2.0. However later his lactic acid went up to 4.9. Since pt's symptoms and vitals were stable we continued IV hydration and empirical abx, as well as asked to repeat labs in 3-4 hrs. When I checked the pt at 5.00 PM he was resting comfortably, slightly tachycardic. Later when pt's troponin went up to 1.4, evening hospitalist Dr. Chen ordered for Heparin gtt. Few minutes later pt found to be in unresponsive and pulseless, so called for code blue. When this happened I am not in the hospital. Alarm Mechanism Adjuster Dr. Chen ran the code. Even after 6 cycles of ACLS pt was still pulseless. So he was pronounced at 2139. Family were notified by Dr. Chen. electric power line examiner was notified by nursing staff. Family do not wanted autopsy. it looks like he may developed severe sepsis with possible ischemic and infectious colitis, which might have caused acute AR too. I did call the pt's family this morning at @ [phone] and talked to pt's 's sister since pt unable to talk now. I did explained to her about his hospital course and possible cause of , answered all questions and concerns. - Time Spent with Patient Total time spent providing and/or coordinating discharge services: - Constitutional Vitals: Temp Pulse Resp BP Pulse Ox 97.8 F 116 20 72/52 95 03/30/17 19:09 03/30/17 19:09 03/30/17 19:09 03/30/17 19:09 03/30/17 19:09 General appearance: Present: A&O X 3, pleasant, no acute distress, obese. Absent: answers questions appropriately - VTE Documentation of Mechanical Device: Intermittent pneumatic compression device
--- NOTE | 2017-04-02 15:50 | Electrocardiograph Report ---
[place] [id number] Test Date: 2017-03-30 Pat Name: Alberto Pratt Department: 110 Room: 2N04 Gender: M [employer] Cutting Machine Operator: [id number] : 1950 Requested By: Jose Solares Order Number: [id number] Reading MD: Cleopatra Prather Measurements Intervals Floyd Rate: 99 P: 67 HI: 140 QRS: 102 QRSD: 78 T: 88 QT: 337 QTc: 393 Interpretive Statements SINUS RHYTHM RIGHT AXIS DEVIATION SEPTAL MYOCARDIAL INFARCTION, OF INDETERMINATE AGE Electronically Signed On 04-02-2017 15:49:04 EST by Cleopatra Prather
== END 2017-03-30 21:39 | disposition expired | DRG 871 ==
LOC: EMEROO 02:09 → 2NNU 02:09
PROVIDERS: ADMIT Internal Medicine; ATTEND Family Medicine